=== PATIENT | male | born 1945 | race Caucasian/White ===

== ENCOUNTER → 2016-10-01 | Outpatient (CLI) | payer BC ==
--- NOTE | 2016-10-01 18:27 | DX ---
Right foot 3 weight-bearing views History: Pain and swelling with no trauma. Comparison: None available Findings: No fracture is identified. 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 There is equivocal erosion at the medial aspect of the head of the first metatarsal on the obl ique view. Bipartite tibial sesamoid is noted. Prominent calcaneal enthesophyte is present at the ins ertion of the Achilles tendon. No soft tissue calcifications are identified. Impression: 1. Mild degenerative change at the first metatarsophalangeal joint with an equivocal erosion. 2. Prominent Achilles calcaneal spur.
== END ==
LOC: BMCIMAGING 15:32
PROVIDERS: ATTEND Podiatrist Foot & Ankle Surgery
DX: M77.31 Calcaneal spur, right foot (principal)

== ENCOUNTER → 2016-10-24 | Outpatient (CLI) | payer OTHER ==
--- NOTE | 2016-10-24 15:13 | DX ---
PA and lateral chest x-ray 1246 hours. History: Cough with flu symptoms. Findings: Heart size and pulmonary vasculature are within normal limits. There is poor inspiration wi th compressive atelectatic changes at the lung bases. There is no consolidation, effusion, or pneumot horax. Mild degenerative changes are noted of the lower thoracic spine with mild ankylosis. Impression: 1. Poor inspiration with compressive atelectatic changes at the lung bases. No consolidation. 2. 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
--- NOTE | 2016-10-24 15:52 | DX ---
Right ankle series weightbearing 1253 hours. History: Pain and swelling. Possible gout. Findings: Osseous structures are intact without evidence of fracture. No erosions are seen. The ankle mortise has a normal contour. Mild soft tissue swelling is present about the ankle. Impression: 1. No underlying osseous abnormality seen right ankle. 2. Mild soft tissue swelling.
== END ==
LOC: BMCIMAGING 12:48
PROVIDERS: ATTEND Internal Medicine
DX: R05 Cough (principal); R09.89 Other specified symptoms and signs involving the circulatory and respiratory systems; M25.571 Pain in right ankle and joints of right foot; M79.89 Other specified soft tissue disorders; M51.34 Other intervertebral disc degeneration, thoracic region